=== PATIENT | female | born 1985 | race Caucasian/White ===

== ENCOUNTER 2017-08-08 23:17 | Inpatient (IN) | payer OTHER, MEDICAID ==
[~2017-08-08] VITALS: Ht 160 cm; Wt 96.4 kg
[~2017-08-08 23:17] MED LIST: ALBU90AE INH
[2017-08-08] MEDS ORDERED: D5%-LACTATED RINGERS 1,000 ML IV SCH (23:27)
[2017-08-08] MEDS ORDERED: OXYTOCIN 30U/ 0.9% NaCL 500ML 500 ML IV ONE (23:27)
[2017-08-08] MEDS: LACTATED RINGERS 1,000 ML IV SCH (23:27)
[2017-08-08] MEDS ORDERED: CALCIUM CARBONATE 500 MG TAB.CHEW PO PRN (23:30)
[2017-08-08] MEDS ORDERED: FENTANYL PF 100 MCG/2ML IVPush PRN (23:30)
[2017-08-08] MEDS ORDERED: FENTANYL PF 100 MCG/2ML IV PRN (23:30)
[2017-08-08] MEDS ORDERED: ONDANSETRON 2MG/ML, 2ML IVPush PRN (23:30)
[2017-08-08] MEDS ORDERED: NEWBORN KIT ONE (23:35)
[2017-08-08] MEDS ORDERED: OXYTOCIN 30U/ 0.9% NaCL 500ML 500 ML ONE (23:35)
[2017-08-08] MEDS ORDERED: FENTANYL PF 100 MCG/2ML ONE (23:41)
[2017-08-08 23:45] LABS: BASOPHILS # (AUTO) 0.04 x10^3/uL (0-0.1); BASOPHILS % (AUTO) 1 % (0-1); EOSINOPHILS # (AUTO) 0.08 x10^3/uL (0-0.4); EOSINOPHILS % (AUTO) 1 % (1-7); LYMPHOCYTES # (AUTO) 1.77 x10^3/uL (1-3.4); LYMPHOCYTES % (AUTO) 20 % (22-44); MD NO; MEAN CORPUSCULAR HEMOGLOBIN 30.9 pg (27.0-34.8); MEAN CORPUSCULAR HGB CONC 33.6 g/dL (32.4-35.8); MEAN CORPUSCULAR VOLUME 92.2 fL (80-100); MEAN PLATELET VOLUME 8.9 fL (7.4-10.4); MONOCYTES # (AUTO) 0.56 x10^3/uL (0.2-0.8); MONOCYTES % (AUTO) 6 % (2-9); NEUTROPHILS # (AUTO) 6.52 x10^3/uL (1.8-6.8); NEUTROPHILS % (AUTO) 73 % (42-75); PLATELET COUNT 279 x10^3/uL (130-400); RED BLOOD COUNT 4.37 x10^6/uL (3.82-5.3); RED CELL DISTRIBUTION WIDTH 14.1 % (9.6-15.2)
[2017-08-09] MEDS ORDERED: BUPIVACAINE 0.25% ONE (00:01)
[2017-08-09] MEDS ORDERED: FENTANYL/BUPIV./NS/PF 250 ML EPIDCONT ONE (00:01)
[2017-08-09] MEDS ORDERED: LIDOCAINE 0.5%-EPI 1:200K, 50ML ONE (00:04)
[2017-08-09] MEDS: LACTATED RINGERS 1,000 ML IV SCH (00:23)
[2017-08-09] MEDS ORDERED: EPHEDRINE 50 MG/ML, 1ML ONE (00:26)
[2017-08-09] MEDS ORDERED: LACTATED RINGERS 1,000 ML IV SCH (00:33)
[2017-08-09] MEDS ORDERED: FENTANYL/BUPIV./NS/PF 250 ML EPIDCONT SCH (00:33)
[2017-08-09 01:00] VITALS: BP 121/84
[2017-08-09] MEDS ORDERED: NALOXONE 0.4 MG/ML, 1ML IVPush PRN (01:00)
[2017-08-09] MEDS ORDERED: EPHEDRINE 50 MG/ML, 1ML IVPush PRN (01:00)
[2017-08-09] MEDS ORDERED: LACTATED RINGERS 1,000 ML IVBOLUS PRN (01:00)
[2017-08-09] MEDS ORDERED: IBUPROFEN 800 MG TABLET PO PRN (02:30)
[2017-08-09] MEDS ORDERED: OXYcodone/APAP 5/325MG TABLET PO PRN (02:30)
[2017-08-09] MEDS ORDERED: BISACODYL 10 MG SUPP PR PRN (02:30)
[2017-08-09] MEDS ORDERED: ONDANSETRON 2MG/ML, 2ML IV PRN (02:30)
[2017-08-09] MEDS ORDERED: METOCLOPRAMIDE 5 MG/ML, 2ML IV PRN (02:30)
[2017-08-09] MEDS ORDERED: ACETAMINOPHEN 325 MG TABLET PO PRN (02:30)
[2017-08-09] MEDS ORDERED: METHYLERGONOVINE 0.2 MG/ML IM PRN (02:30)
[2017-08-09] MEDS ORDERED: GLYCERIN ADULT SUPP PR PRN (02:30)
[2017-08-09] MEDS ORDERED: MISOPROSTOL 200 MCG TABLET PR PRN (02:30)
[2017-08-09] MEDS ORDERED: CARBOPROST TROMETHAMINE 250 MCG/ML, 1ML IM PRN (02:30)
[2017-08-09] MEDS ORDERED: OXYTOCIN 30U/ 0.9% NaCL 500ML 500 ML ONE (02:45)
[2017-08-09] MEDS ORDERED: IBUPROFEN 600 MG TABLET ONE (02:45)
[2017-08-09] MEDS: OXYTOCIN 30U/ 0.9% NaCL 500ML 500 ML IV SCH ×3 (02:52→22:25)
[2017-08-09] MEDS ORDERED: PREN1TAB60 PO (03:16)
[2017-08-09 04:30] VITALS: BP 100/66
[2017-08-09] MEDS: IBUPROFEN 600 MG TABLET PO PRN ×3 (05:24→22:17)
[2017-08-09] MEDS: PRENATAL VIT/IRON/FA 1 EACH TABLET PO SCH (07:43)
[2017-08-09] MEDS: DOCUSATE 100 MG CAPSULE PO PRN ×2 (07:44→22:17)
[2017-08-09] MEDS: OXYcodone/APAP 5/325MG TABLET PO PRN ×4 (07:44→22:17)
[2017-08-09 07:45] VITALS: BP 104/70
[2017-08-09 10:12] LABS: BASOPHILS # (AUTO) 0.03 x10^3/uL (0-0.1); BASOPHILS % (AUTO) 0 % (0-1); EOSINOPHILS # (AUTO) 0.04 x10^3/uL (0-0.4); EOSINOPHILS % (AUTO) 0 % (1-7); LYMPHOCYTES # (AUTO) 1.25 x10^3/uL (1-3.4); LYMPHOCYTES % (AUTO) 11 % (22-44); MD NO; MEAN CORPUSCULAR HEMOGLOBIN 31.7 pg (27.0-34.8); MEAN CORPUSCULAR HGB CONC 34.2 g/dL (32.4-35.8); MEAN CORPUSCULAR VOLUME 92.6 fL (80-100); MEAN PLATELET VOLUME 9.1 fL (7.4-10.4); MONOCYTES % (AUTO) 6 % (2-9); NEUTROPHILS # (AUTO) 9.96 x10^3/uL (1.8-6.8); NEUTROPHILS % (AUTO) 83 % (42-75); PLATELET COUNT 226 x10^3/uL (130-400); RED BLOOD COUNT 3.77 x10^6/uL (3.82-5.3); RED CELL DISTRIBUTION WIDTH 14.9 % (9.6-15.2)
[2017-08-09 12:30] VITALS: BP 111/77
[2017-08-09 16:00] VITALS: BP 99/65
[2017-08-09 20:10] VITALS: BP 106/78
[2017-08-10 02:20] VITALS: BP 104/71
[2017-08-10] MEDS: OXYcodone/APAP 5/325MG TABLET PO PRN ×2 (02:24→08:15)
[2017-08-10] MEDS ORDERED: OXYC-302 PO (07:53)
[2017-08-10] MEDS ORDERED: IBUP-1222 PO (07:54)
[2017-08-10 08:00] VITALS: BP 95/61
[2017-08-10] MEDS: PRENATAL VIT/IRON/FA 1 EACH TABLET PO SCH (08:15)
[2017-08-10] MEDS: DOCUSATE 100 MG CAPSULE PO PRN (08:15)
[2017-08-10] MEDS: IBUPROFEN 600 MG TABLET PO PRN (08:15)
[2017-08-10] MEDS: OXYTOCIN 30U/ 0.9% NaCL 500ML 500 ML IV SCH (08:25)
== END 2017-08-10 11:45 | disposition home or self-care (01) | DRG 775 ==
LOC: LDOP 23:17 → LDIP 23:31 → 2NW 08-09 04:35
PROVIDERS: ADMIT Obstetrics & Gynecology; ATTEND Obstetrics & Gynecology
PROC: 10E0XZZ Delivery of Products of Conception, External Approach (ICD-10-PCS; principal; 2017-08-09)
PROC: 10907ZC Drainage of Amniotic Fluid, Therapeutic from Products of Conception, Via Natural or Artificial Opening (ICD-10-PCS; 2017-08-09)
PROC: 0HQ9XZZ Repair Perineum Skin, External Approach (ICD-10-PCS; 2017-08-09)
PROC: 3E0R3BZ Introduction of Anesthetic Agent into Spinal Canal, Percutaneous Approach (ICD-10-PCS; 2017-08-09)
PROC: 00HU33Z Insertion of Infusion Device into Spinal Canal, Percutaneous Approach (ICD-10-PCS; 2017-08-09)
DX: O70.0 First degree perineal laceration during delivery (principal); Z37.0 Single live birth; Z3A.37 37 weeks gestation of pregnancy
CPT/HCPCS: 36415; 85025; 86900; J3010; J2590; J7120

== ENCOUNTER 2019-04-25 19:41 | Emergency (ER) | payer OTHER, MEDICAID ==
[~2019-04-25] VITALS: Ht 160 cm; Wt 90.9 kg
[~2019-04-25 19:41] MED LIST changes: +IBUP-1222 PO; +OXYC-302 PO; +PREN1TAB60 PO
[2019-04-25 21:13] LABS: BASOPHILS # (AUTO) 0.03 x10^3/uL (0-0.1); BASOPHILS % (AUTO) 0 % (0-1); EOSINOPHILS # (AUTO) 0.14 x10^3/uL (0-0.4); EOSINOPHILS % (AUTO) 2 % (1-7); LYMPHOCYTES # (AUTO) 2.13 x10^3/uL (1-3.4); LYMPHOCYTES % (AUTO) 25 % (22-44); MD NO; MEAN CORPUSCULAR HGB CONC 33.6 g/dL (32.4-35.8); MEAN CORPUSCULAR VOLUME 92.4 fL (80-100); MEAN PLATELET VOLUME 8.9 fL (7.4-10.4); MONOCYTES # (AUTO) 0.43 x10^3/uL (0.2-0.8); MONOCYTES % (AUTO) 5 % (2-9); NEUTROPHILS # (AUTO) 5.94 x10^3/uL (1.8-6.8); NEUTROPHILS % (AUTO) 69 % (42-75); PLATELET COUNT 312 x10^3/uL (130-400); RED BLOOD COUNT 4.67 x10^6/uL (3.82-5.3); RED CELL DISTRIBUTION WIDTH 13.4 % (9.6-15.2)
[2019-04-25 21:24] LABS: ALANINE AMINOTRANSFERASE 23 U/L (12-78); ANION GAP 5 mmol/L (5-15); CALCIUM 9.1 mg/dL (8.5-10.1); CHLORIDE 111 mmol/L (98-107)
[2019-04-25 21:29] LABS: ALKALINE PHOSPHATASE 55 U/L (45-117); BILIRUBIN,TOTAL 0.3 mg/dL (0.2-1.0); TOTAL PROTEIN 7.6 g/dL (6.4-8.2)
--- NOTE | 2019-04-25 21:31 | NUR ---
Patient presents to ER c/o upper quad abd pain since Wednesday. +Diarrhea; denies vomiting. LMP end of March. States no chance of being . She states she is not having abd pain now. Patient is in NAD. Respirations even and unlabored.
[2019-04-25 21:40] LABS: MICROSCOPIC NOT IND
[2019-04-25 21:44] LABS: CULTURE INDICATED? NO
[2019-04-25 21:53] VITALS: BP 97/62
--- NOTE | 2019-04-25 21:56 | NUR ---
Patient discharge instructions given. All questions and concerns addressed. Patient ambulatory with a steady gait. Belongings with patient.
== END 2019-04-25 21:58 | disposition home or self-care (01) ==
LOC: ED 21:52
DX: A09 Infectious gastroenteritis and colitis, unspecified (principal); F17.200 Nicotine dependence, unspecified, uncomplicated
CPT/HCPCS: 36415; 76700; 80053; 81003; 83690; 84703; 85025; 99284